=== PATIENT | female | born 1940 | race Caucasian/White ===

== ENCOUNTER 2023-10-07 12:34 | Outpatient (CLI) | payer MEDICARE, OTHER, SELFPAY ==
--- NOTE | 2023-10-07 12:47 | MR_ITS ---
WS: [id number] MRI LUMBAR SPINE NONCONTRAST TECHNIQUE: Sagittal T1, T2 and STIR imaging. Axial T1 and T2 imaging. CLINICAL INFORMATION: LUMBAR RADIULOPATHY COMPARISON: None. 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 Counting pe rformed from the craniocervical junction. 6 lumbar type vertebral bodies considered L1-L6 for the pur poses of this dictation. Pedicle screw fixation L4-S1 with interbody fusion grafts. Grade 1 anterolis thesis L5 on L6 and L6 on S1. Chronic anterior wedging of the midthoracic spine with small disc osteophyte protrusions. Partially v isualized large esophageal hiatal hernia with intrathoracic stomach. Thoracic scoliosis. Thoracic kyp hosis. L1-L2: Disc osteophyte complex with a small central protrusion. Mild facet arthropathy. Mild central canal stenosis. L2-L3: Advanced disc space narrowing with endplate edema likely degenerative. Discitis is less likely . Correlation for infection. LEFT eccentric disc osteophyte protrusion with moderate to severe LEFT a nd no significant RIGHT foraminal narrowing. Moderate facet arthropathy. Moderate central canal steno sis. L3-L4: Mild disc bulging with moderate central canal stenosis. Impingement of the subarticular recess bilaterally. Moderate LEFT and mild RIGHT bony foraminal narrowing. Moderate facet arthropathy. L4-L5: Pedicle screw fixation with interbody fusion. Spinal canal and foramen are patent. Laminectomy defects. L5-L6: Pedicle screw fixation. Laminectomy defects. Interbody fusion. Spinal canal and foramen are pa tent. L6-S1: Slight grade 1 anterolisthesis pedicle screw fixation. Mild RIGHT bony foraminal narrowing. Sp inal canal is patent. Visualized pelvic bony structures: Normal. Paravertebral soft tissues: Normal. MR/MR lumbar spine wo con* [id number] IMPRESSION: 1. 6 lumbar type vertebral bodies. Counting performed from the craniocervical junction. 2. Prior postoperative changes pedicle screw fixation L4-S1 with interbody fus ion grafts. Hardware degrades some images. 3. Moderate central canal stenosis L2-L3 and L3-L4. 4. Moderate to severe LEFT L2-3 foraminal narrowing with impingement on the ex iting LEFT L2 nerve root. 5. Degenerative edema with disc desiccation L2-3 likely degenerative. Discitis is less likely. Recommend correlation for infection. 6. Disc bulging L1-2 with mild central canal stenosis with a small central pro trusion. 7. Moderate LEFT L3-4 foraminal narrowing. 8. Spinal canal and foramen are patent at the fusion levels. 9. Partially visualized large esophageal hiatal hernia with intrathoracic stom ach. This is partially visualized. Recommend further evaluation with chest CT.
== END 2023-10-07 12:35 | disposition home or self-care (01) ==
LOC: RAD 12:37
PROVIDERS: PCP Family Medicine; Visit Provider Nurse Practitioner Family
DX: M54.16 Radiculopathy, lumbar region (principal); M43.27 Fusion of spine, lumbosacral region; M43.16 Spondylolisthesis, lumbar region; M43.17 Spondylolisthesis, lumbosacral region; M48.54XA Collapsed vertebra, not elsewhere classified, thoracic region, initial encounter for fracture; M25.78 Osteophyte, vertebrae; K44.9 Diaphragmatic hernia without obstruction or gangrene; M40.204 Unspecified kyphosis, thoracic region; M47.816 Spondylosis without myelopathy or radiculopathy, lumbar region; M48.061 Spinal stenosis, lumbar region without neurogenic claudication; M51.36 Other intervertebral disc degeneration, lumbar region; Z98.890 Other specified postprocedural states; M48.07 Spinal stenosis, lumbosacral region
CPT/HCPCS: 72148